=== PATIENT | female | born 1950 | race Caucasian/White ===

== ENCOUNTER 2021-05-26 14:37 | Emergency (ER) | payer MEDICARE, SELFPAY ==
[2021-05-26 14:38] VITALS: BP 156/88; PULSE 90; RESP 18; TEMP 36.6; O2SAT 97; BMI 29.2
[2021-05-26 14:48] VITALS: BP 158/80; PULSE 89; RESP 21; O2SAT 98
--- NOTE | 2021-05-26 14:59 | EKG12_ITS ---
Test Reason : CHEST PRESSURE Blood Pressure : / mmHG Vent. Rate : 086 BPM Atrial Rate : 086 BPM P-R Int : 162 ms QRS Dur : 096 ms QT Int : 370 ms P-R-T Axes : 049 -07 071 degrees QTc Int : 442 ms Normal sinus rhythm Septal infarct , age undetermined Abnormal ECG Confirmed by BINTA CRAIG, ADITYA ([id number]), editor index MEJIA DORMAN ([id number]) on 05/28/2021 9:26:28 AM Referred By: RU Confirmed By:ADITYA JUDD MD
--- NOTE | 2021-05-26 15:02 | RAD_ITS ---
HISTORY: chest pain EXAMINATION/TECHNIQUE: XR Chest 1 View: 1 view COMPARISON: None FINDINGS: LINES/DEVICES: None. LUNGS: No consolidation, edema or effusion. No pneumothorax. MEDIASTINUM AND CARDIOVASCULAR STRUCTURES: Cardiac silhouette not enlarged. Central airways and mediastinal contour are unremarkable. BONES AND SOFT TISSUES: No acute bony abnormalities. RAD/Chest 1 View (Portable) IMPRESSION: No radiographic evidence of acute cardiopulmonary disease. at 1557 Reported and signed by: Ramirez Freedman MD Electronically Signed: Ramirez Freedman MD at 15:56 EDT ,
[2021-05-26 15:11] LABS: Absolute Neutrophil Count 4.7 X10^3/uL (2.0-7.7); Basophil% 0.9 % (0-1); Eosinophil# 0.09 X10^3/uL; Eosinophils% 0.8 % (0-5); Hematocrit 49.5 % (37-47); Hemoglobin 17.2 g/dL (12.0-15.0); Lymphocyte % 45.3 % (19-41); Mean Corp Hgb Conc 34.7 g/dL (32-36); Mean Corpuscular Hgb 30.6 pg (27.0-32.0); Mean Corpuscular Volume 87.9 fL (81-99); Mean Platelet Vol. 10.4 fl (6.2-12.0); Monocyte# 0.86 X10^3/uL; Monocyte% 8.1 % (0-10); NRBC Flagged by Analyzer 0 % (0-5); Neutrophil # 4.74 X10^3/uL (2.7-7.7); Neutrophil % 44.8 % (47-70); Platelet Count 267 K/mm3 (150-450); RBC Distribution Width CV 12.6 % (11.6-14.6); Red Blood Count 5.63 M/mm3 (4.2-5.4); White Blood Count 10.6 K/mm3 (4.4-11.0)
--- NOTE | 2021-05-26 15:14 | ED.VIS.CHEST ---
HPI History of Present Illness Chief Complaint: Chest Pain Informant: patient Onset/Context/Timing Onset: Hours (7) Activity at onset: gradual and onset Timing: Continuous Quality: Positive for Pain Location: Substernal (No radiation) Current Severity: Mild Maximum Severity: Moderate Worsened By: Exertion, Movement of Torso (Bending over), Breathing and - (No different with eating breakfast this morning after the discomfort had started) Relieved By: Rest Associated Symptoms: Positive for Dyspnea and Lightheadedness; Negative for Nausea, Vomiting, Diaphoresis, Cough, Fever and Palpitations Narrative Narrative: Patient with chest discomfort that started this morning after she was up and moving around while she was getting dressed. She notes that bending over made it worse, exerting herself made it worse, rest made it better, it has not gone away. EMS was called, they gave her aspirin. She states there is a pleuritic component to it. She has no reason to have muscle pain in her chest with overuse or injury recently. No recent travel, immobilization, hospitalization, or surgery. No history of blood clots. No recent illness or cough. CVD Risk Factors: Positive for Diabetes; Negative for Hypertension, Hypercholesterolemia, Family History 1' </=55 and Smoking PE Risk Factors: Negative for Recent Travel/Surgery, Recent Immobilization, Prior DVT or PE, Cancer and OCP + Smoking + >/=35 PFSH PFSH Medical History Diabetes Macular degeneration Meniere's disease Osteopenia Home Medications alendronate 35 mg PO DAILY 05/26/21 [History Last Taken Unknown] amlodipine 2.5 mg PO DAILY 05/26/21 [History Last Taken Unknown] hydrochlorothiazide 25 mg PO DAILY 05/26/21 [History Last Taken Unknown] metformin 1,000 mg PO DAILY 05/26/21 [History Last Taken Unknown] simvastatin 40 mg PO DAILY 05/26/21 [History Last Taken Unknown] Allergy/AdvReac Type Severity Reaction Status Date / Time lisinopril Allergy Laryngospas Verified 05/26/21 14:41 ms Surgical History (Updated 05/26/21 @ 14:53 by Vijaya Beltran) Hx of cholecystectomy Social History Smoking Status: Never smoker ROS ROS ED Constitutional Constitutional ED: Denies chills or fever(s) Eyes Eyes: Denies change in vision or diplopia ENT ENT ED: Denies rhinorrhea or sore throat Cardiovascular Cardiovascular: Reports chest pain; Denies orthopnea, palpitations or pedal edema Respiratory/Chest Respiratory/Chest: Reports dyspnea; Denies cough or orthopnea Gastrointestinal Gastrointestinal: Denies abdominal pain, diarrhea, nausea or vomiting Genitourinary Genitourinary ED: Denies dysuria or hematuria Musculoskeletal Musculoskeletal: Denies back pain or neck pain Integumentary Denies abscess or rash Neurologic Neurologic: Denies headache(s), paresthesias or weakness Psychiatric Psychiatric: Denies anxiety or suicidal thoughts EXAM Physical Exam Const Vital Signs: 05/26/21 14:38 05/26/21 14:48 05/26/21 15:00 Temperature 97.9 F Temperature Source Temporal Pulse Rate 90 89 Respiratory Rate 18 21 H Blood Pressure 156/88 H 158/80 H Blood Pressure Mean 110 106 Pulse Ox 97 98 Oxygen Delivery Method Room Air Room Air Room Air 05/26/21 15:41 05/26/21 15:53 Temperature Temperature Source Pulse Rate 78 84 Respiratory Rate Blood Pressure 124/79 H 105/81 H Blood Pressure Mean Pulse Ox Oxygen Delivery Method Positive well nourished and well developed General Appearance ED: well developed and NAD HEENT Reports moist mucous membranes normocephalic and atraumatic Eyes PERRL and EOMs intact bilaterally Neck full ROM and supple Chest Wall Chest: Negative for tenderness Resp normal respiratory effort and clear to auscultation bilaterally Cardio regular rate, regular rhythm, no murmurs and no JVD Rate: Negative for bradycardia or tachycardic GI non-tender and non-distended Auscultation: normoactive bowel sounds Palpation: soft Back/Spine no CVA tenderness General Back: other FROM Extremity normal to inspection General Extremety ED: Negative for edema, pulses abnormal or tenderness General Extremity: Negative for edema or pulses abnormal Neuro oriented x3, CN's II-XII intact bilaterally and no sensory deficits noted Sensorium / Orientation: awake and alert Motor Exam: strength 5/5 throughout Skin no rashes or lesions noted and no wounds Heart Score History: Moderately Suspicious ECG: Normal Age: >/= 65 years Risk Factors: >/= 3 Risk Factors or History of CAD Troponin: </= Normal Limit Score: 5 MDM MDM MDM Narrative Medical decision making narrative: Work-up noted. On my interpretation 1 view chest x-ray negative for anything acute, radiology in agreement. She was offered nitroglycerin for the discomfort it was a lot better barely there on reevaluation. Troponin is 6 after 6 or 7 hours of constant discomfort, making acute coronary syndrome much less likely, however given her heart score and risk, and the fact that her discomfort is not completely gone, I discussed admitting her for observation and a stress test tomorrow morning. She understands that going home she has a slight increased risk from someone who would have less risk of having an GA or , and she accepts this risk and prefers to go home and follow-up closely with her PCP. We discussed reasons to return, and discussed the plan together. Lab Data Attestation: I reviewed the patient's lab results. Labs: Laboratory Results - last 24 hr 05/26/21 05/26/21 05/26/21 14:45 14:45 14:45 WBC 10.6 RBC 5.63 H Hgb 17.2 H Hct 49.5 H MCV 87.9 MCH 30.6 MCHC 34.7 RDW Std Deviation 41.0 RDW Coeff of Rossi 12.6 Plt Count 267 MPV 10.4 Immature Gran % (Auto) 0.100 Neut % (Auto) 44.8 L Lymph % (Auto) 45.3 H [place] % (Auto) 8.1 Eos % (Auto) 0.8 Baso % (Auto) 0.9 Absolute Neuts (auto) 4.7 Absolute Lymphs (auto) 4.80 H Nucleated RBC % 0 D-Dimer Quant (PE/DVT) 0.40 Sodium 139 Potassium 3.5 Chloride 104 Carbon Dioxide 28.0 Anion Gap 7 BUN 13 Creatinine 0.75 Estim Creat Clear Calc 42.68 Est GFR (MDRD) Af Amer 98 Est GFR (MDRD) Non-Af 81 BUN/Creatinine Ratio 17.3 Glucose 107 H Calcium 10.4 H Troponin I High Sens 6 Radiography Diagnostic Testing: Clinical Impression(s) from Imaging Studies Chest X-Ray 05/26/21 15:02 IMPRESSION: No radiographic evidence of acute cardiopulmonary disease. at 1557 Reported and signed by: Ramirez Freedman MD Electronically Signed: Ramirez Freedman MD at 15:56 EDT Reading Location ID and State: [facility] / [place] Tel , Service support , EKG Initial EKG: Attestation: I personally reviewed and interpreted this EKG as follows: Interpretation: Sinus Rhythm, No Acute Injury Pattern and - (Anteroseptal Q waves) Prior: No Prior Discharge Plan Triage Chief Complaint: Chest Pain ED Provider: Aayush Tomas Dx/Rx/DC Orders Clinical Impression: Chest pain, unspecified Instructions: ED Chest Pain, Uncertain Cause Prescriptions: No Action amlodipine 2.5 mg tablet 2.5 mg PO DAILY RF: 0 simvastatin 40 mg tablet 40 mg PO DAILY RF: 0 alendronate 35 mg tablet 35 mg PO DAILY RF: 0 hydrochlorothiazide 25 mg tablet 25 mg PO DAILY RF: 0 metformin 500 mg tablet extended release 24 hr 1,000 mg PO DAILY RF: 0 Primary Care Provider: Eladio Kennedy Referrals: Eladio Kennedy DO [Primary Care Provider] - As soon as possible Activity Restrictions/Additional Instructions: Take aspirin 81 mg daily at least until you are seen in follow-up. Disposition Disposition: Home, Self Care
[2021-05-26 15:28] LABS: Anion Gap 7 (5-15); BUN 13 mg/dL (7-18); BUN/Creat Ratio 17.3 RATIO (10-20); Calcium,Total 10.4 mg/dL (8.5-10.1); Chloride 104 mmol/L (98-107); Creatinine, Serum 0.75 mg/dL (0.55-1.02); EST Glomerular Filtration Rate 81 mL/min (>60); Est Glom Filt Rate - Afr Amer 98 mL/min (>60); Estimated Creatinine Clearance 42.68 ml/min; Glucose 107 mg/dL (74-106); Potassium 3.5 mmol/L (3.5-5.1); Sodium Level 139 mmol/L (136-145); Troponin-I HS 6 pg/mL (3.0-54.0)
[2021-05-26 15:41] VITALS: BP 124/79; PULSE 78
[2021-05-26] MEDS: Nitroglycerin SL (ED/IMG/CATH) 0.4 MG TABLET SL ×2 (15:41→15:53)
[2021-05-26 15:53] VITALS: BP 105/81; PULSE 84
[2021-05-26 17:29] VITALS: BP 108/79; PULSE 71; RESP 16; O2SAT 97
== END 2021-05-26 17:30 | disposition home or self-care (01) ==
PROVIDERS: Emergency Provider Emergency Medicine; PCP Preventive Medicine Occupational Medicine; Visit Provider Emergency Medicine
DX: R07.89 Other chest pain (principal); E11.9 Type 2 diabetes mellitus without complications; R06.00 Dyspnea, unspecified; M85.80 Other specified disorders of bone density and structure, unspecified site; H81.09 Meniere's disease, unspecified ear; Z79.899 Other long term (current) drug therapy; Z79.84 Long term (current) use of oral hypoglycemic drugs
CPT/HCPCS: 71045; 80048; 84484; 85025; 85379; 93005; 99285

== ENCOUNTER → 2023-03-18 | Outpatient (CLI) | payer MEDICARE, SELFPAY ==
--- NOTE | 2023-03-18 11:45 | RAD_ITS ---
EXAM: XR CHEST, 2 VIEWS CLINICAL INDICATION: cad TECHNIQUE: Frontal and lateral views of the chest. COMPARISON: 05/26/2021 FINDINGS: LUNGS AND PLEURAL SPACES: Unremarkable. No consolidation or edema. No pneumothorax. No effusion. HEART: Unremarkable. Cardiac silhouette not enlarged. MEDIASTINUM: Central airways and mediastinal contour are unremarkable. BONES/JOINTS: Unremarkable. No acute fracture. SOFT TISSUES: Unremarkable. RAD/Chest PA and Lateral IMPRESSION: No radiographic evidence of acute cardiopulmonary disease. Electronically Signed: Bishop Glez MD at 23:28 EST ,
[2023-03-18 12:31] LABS: Absolute Lymphocyte Count 3.07 X10^3/uL (0.83-4.51); Absolute Neutrophil Count 4.7 X10^3/uL (2.0-7.7); Basophil# 0.12 X10^3/uL; Basophil% 1.4 % (0-1); Eosinophil# 0.08 X10^3/uL; Eosinophils% 0.9 % (0-5); Hematocrit 50.1 % (37-47); Hemoglobin 16.8 g/dL (12.0-15.0); Lymphocyte # 3.07 X10^3/ul (0.83-4.51); Lymphocyte % 34.9 % (19-41); Mean Corp Hgb Conc 33.5 g/dL (32-36); Mean Corpuscular Hgb 29.7 pg (27.0-32.0); Mean Corpuscular Volume 88.7 fL (81-99); Mean Platelet Vol. 10.5 fl (6.2-12.0); Monocyte# 0.84 X10^3/uL; Monocyte% 9.5 % (0-10); NRBC Flagged by Analyzer 0 % (0-5); Neutrophil # 4.68 X10^3/uL (2.7-7.7); Neutrophil % 53.2 % (47-70); Platelet Count 246 K/mm3 (150-450); RBC Distribution Width CV 12.6 % (11.6-14.6); RBC Distribution Width SD 41.1 fl (35.1-43.9); Red Blood Count 5.65 M/mm3 (4.2-5.4); White Blood Count 8.8 K/mm3 (4.4-11.0)
[2023-03-18 13:22] LABS: Anion Gap 8 (5-15); BUN 17 mg/dL (7-18); BUN/Creat Ratio 21.2 RATIO (10-20); Chloride 105 mmol/L (98-107); EST Glomerular Filtration Rate 75 mL/min (>60); Est Glom Filt Rate - Afr Amer 90 mL/min (>60); Glucose 210 mg/dL (74-106); Potassium 3.5 mmol/L (3.5-5.1); Sodium Level 137 mmol/L (136-145); Thyroid Stim Hormone (TSH) 2.28 uIU/mL (0.358-3.74)
== END | disposition home or self-care (01) ==
LOC: LAB 11:26
PROVIDERS: PCP Preventive Medicine Occupational Medicine; Referring Provider Internal Medicine Cardiovascular Disease; Visit Provider Internal Medicine Cardiovascular Disease
DX: R07.9 Chest pain, unspecified (principal); E11.9 Type 2 diabetes mellitus without complications; H81.09 Meniere's disease, unspecified ear
CPT/HCPCS: 36415; 71046; 80048; 84443; 85025

== ENCOUNTER 2023-04-06 08:15 | Day surgery (SDC) | payer MEDICARE, SELFPAY ==
[2023-04-03 07:50] VITALS: BMI 31.8
--- NOTE | 2023-04-06 11:17 | CL.D_ITS ---
Patient Name: GIANFRANCO SO Study Date: 04/06/2023 Performing: Hernesto Chan MD Ht: 63 inches 160.02 cm : 1950 Wt: 180.01 lbs 81.65 kg Age: 72 Gender: female BSA: 1.85 PROCEDURE(S) PERFORMED [id number])LHC/COR/LV CLINICAL PROFILE AND INDICATIONS Indications: Suspected CAD Heart Failure: None Stress/Imaging Stress/Image Study Performed: No CAD Presentations: Stable angina. CONCLUSIONS Non obstructive coronary arteries RECOMMENDATIONS Medical therapy DESCRIPTION OF PROCEDURE The patient arrived to the procedure lab. The risks and benefits of the procedure as well as a full description of our services here and current unavailability of surgical backup were fully explained to the patient and/or their significant other prior to the catheterization. The Timeout was completed, verifying the correct patient and procedure. The patient's procedural site was prepped and draped in the usual fashion. Local anesthetic was given subcutaneously to right radial region with Lidocaine 2%. Using a modified Seldinger technique, arterial access was obtained via the right radial artery, a 6Fr sheath was inserted. Left Coronary Artery selective angiography was performed in multiple views using a 5 Fr. 4.0 [place] catheter. Right Coronary Artery selective angiography was then performed in multiple views using a 5 Fr. 4.0 [place] catheter. Left Ventriculography was performed in SCOTT projection using a 5 Fr. Pigtail catheter. LV to AO pullback pressures were then recorded.The arterial sheath was pulled and a TR Band was applied for hemostasis-8 cc air CORONARY ANGIOGRAPHY DOMINANCE: Right Dominant LEFT HEART ASSESSMENT Left Ventricular Ejection Fraction: by LV Gram 65 % Normal LV wall motion Normal Left Ventricular systolic function LEFT MAIN: Mild calcification, Mild luminal irregularities LEFT ANTERIOR DESCENDING ARTERY: Mild luminal irregularities less than 30% CIRCUMFLEX ARTERY: Mild luminal irregularities RIGHT CORONARY ARTERY: Mild luminal irregularities less than 30% COMPLICATIONS No Complications PROCEDURE MEDICATIONS Versed 1 mg IV Fentanyl 50 mcg IV Oxygen: 2 L/min via nasal cannula Baby Aspirin (81mg) 1 Tabs PO @ 04/06/2023 08:34:25 Heparin given IA 04/06/2023 10:55:48 Verapamil 2.5mg, Ntg 100mcgs, 3000 units of Heparin given IA 04/06/2023 10:55:48 SUMMARY OF HEMODYNAMIC DATA Time AIR REST ECG 08:32:36 Art 137/61 (90) 10:41:56 AO 139/0 (99) SA 10:56:53 LV 128/7, 16 11:01:16 LV 129/7, 13 11:01:24 LV 146/10, 17 11:01:58 LVp 137/13, 24 11:02:02 AOp 137/65 (97) 11:02:09 AIR REST 11:14:06 Signed By Hernesto Chan MD On 04/06/2023 11:16:30 Hernesto Chan MD
== END 2023-04-06 12:40 | disposition home or self-care (01) ==
PROVIDERS: PCP Preventive Medicine Occupational Medicine; Referring Provider Internal Medicine Cardiovascular Disease; Visit Provider Internal Medicine Cardiovascular Disease
DX: R07.9 Chest pain, unspecified (principal); E11.9 Type 2 diabetes mellitus without complications; I10 Essential (primary) hypertension; E78.5 Hyperlipidemia, unspecified; Z90.49 Acquired absence of other specified parts of digestive tract; Z82.49 Family history of ischemic heart disease and other diseases of the circulatory system; H81.09 Meniere's disease, unspecified ear
CPT/HCPCS: 93458; 99152; 99153; J7040; Q9967; C1769; C1894

== ENCOUNTER 2024-05-27 12:32 | Day surgery (SDC) | payer MEDICARE, SELFPAY ==
--- NOTE | 2024-05-25 12:58 | PAT.ANESEVAL ---
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 When Was Last Pacemaker Check QUESTION #4 FULL TEXT: You/Your Family Experience fever (hyperthermia) with Anesthesia Last Oral Intake Last Oral intake: Last Oral Intake NPO since Meds taken in AM with sips of water? 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 fertility extension specialist Female Yes 05/25/24 11:09 HX of Motion Sickness No 05/25/24 11:09 HX of N/V After Surgery No 05/25/24 11:09 Non-Smoker Yes 05/25/24 11:09 Duration of Surgery greater No 05/25/24 11:09 than 60 minutes Number of Risk Factors 2 05/25/24 11:09 PONV Score Moderate Risk 05/25/24 11:09 Height & Weight Height & Weight: Anesthesia: Height & Weight Height 5 ft 3 in 10/26/23 14:47 Respiratory Assessment Respiratory Assessment - soil fertility extension specialist: Respiratory Tract Infection Hx - 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 Has anyone observed you stop No 05/25/24 11:09 breathing during sleep? STOP Results Negative 05/25/24 11:09 QUESTION #5 FULL TEXT : Do you snore loudly (louder than talking or can be heard through closed doors)? 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 Specify any problems Hx of Preganancy in last 3 N/A 05/25/24 11:09 Months Nurse Filling Out Transfusion NBUCHER 05/25/24 11:09 & Questions: Date: 05/25/24 05/25/24 11:09 Time: 11:11 05/25/24 11:09 Patient unable to answer at this time (ie. confused, unrespo /Reproduction History /Reproductive History - soil fertility extension specialist: /Reproductive Hx- soil fertility extension specialist Hx Now No 05/25/24 11:09 Gestational Age (in weeks): EDC: Hx Hx Para Hx Section SAB No 05/25/24 11:09 [facility] Medical History (Updated 05/25/24 @ 11:16 by Angela Solorzano) Wears glasses Loss of hearing Wears dentures Arthritis High cholesterol Non-smoker History of stress test Kidney stones Cardiology follow-up encounter Osteoarthritis GERD (gastroesophageal reflux disease) Hyperlipidemia Essential (primary) hypertension Diabetes Osteopenia Macular degeneration Meniere's disease Home Medications ?Medication ?Instructions ?Recorded ?Last Taken ?Type hydrochlorothiazide 25 mg tablet 25 mg PO DAILY 05/26/21 Unknown History metformin 500 mg tablet,extended 1,000 mg PO DAILY 05/26/21 04/05/23 History release 24 hr alendronate 35 mg tablet 35 mg PO QWEEK 02/16/23 Unknown History calcium 500 mg (as 1 tab PO DAILY 02/16/23 Unknown History carbonate)-vitamin D3 5 mcg (200 unit) tablet (Calcium 500 + D) meclizine 25 mg tablet 25 mg PO TID PRN motion sickness 02/16/23 Unknown History multivitamin 1 tab PO DAILY 02/16/23 Unknown History nitroglycerin 0.4 mg sublingual 0.4 mg sublingual Q5-15M PRN chest 02/16/23 Unknown History tablet (Nitrostat) pain vit C 250 mg-vit E 90 mg-zinc 40 1 tab PO BID 02/16/23 Unknown History mg-copper 1 [id number] capsule (PreserVision AREDS-2) simvastatin 40 mg tablet 40 mg PO DAILY 04/06/23 Unknown History metoprolol succinate 25 mg 25 mg PO DAILY #90 tabs 12/08/23 Unknown Rx tablet,extended release 24 hr (Toprol XL) amlodipine 10 mg tablet 5 mg PO DAILY 05/25/24 Unknown History Allergy/AdvReac Type Severity Reaction Status Date / Time lisinopril Allergy Laryngospas Verified 05/25/24 11:05 ms nitrofurantoin (From AdvReac Severe Nausea/Vom/ Verified 05/25/24 11:05 Macrobid) Diarrhea Family History Mother Cancer Heart disease Hyperlipidemia Hypertension Colon cancer CVA (cerebral vascular accident) Daughter Cancer Hypertension Sister Colon cancer Diabetes Myocardial infarction Heart disease Hyperlipidemia Hypertension Father Myocardial infarction Heart disease Hyperlipidemia Hypertension Brother Heart disease Surgical History (Updated 05/25/24 @ 11:16 by Angela Solorzano) History of placement of ureteral stent History of cardiac catheterization Hx of total knee replacement Hx of cholecystectomy Social History Smoking Status: Never smoker alcohol intake: never substance use type: does not use Audit: Pertinent Findings Pertinent Findings EKG Perinent findings: 03/18/2023. Sinus tachycardia old anterior infarct nonspecific ST depression. Diffuse nonspecific T wave abnormality. LVH versus strain or digitalis effect. Heart catheterization pertinent findings: 04/06/2023. Indication suspected coronary artery disease. Conclusion nonobstructive coronary arteries. Medication therapy only. Consult pertinent findings: Cardiology. 10/26/2023. History of chest pain. Inactive. Had a heart cath in past. Hypertension. Controlled with current medications. No further care needed. Recommendation Anesthesia Recommendation Anesthesia recommendation: OPTIMIZED for anesthesia
[2024-05-27] VITALS (7 sets, daily range): BP systolic 112–164; BP diastolic 63–129; PULSE 72–92; RESP 16–20; TEMP 36.2–37.4; O2SAT 95–99; BMI 29.7
--- NOTE | 2024-05-27 13:00 | PRE.ANES_ITS ---
ASA Classification* ASA Classification ASA Classification: 2 Assessment & Plan Anesthesia* Anesthesia Assessment Anesthesia Assessment: Discussed sedation and/or anesthesia options, risks, benefits, and alternatives with patient/parents/legal guardian/POA. Questions invited. The patient/parents/legal guardian/POA seems to understand and agrees to proceed with anesthesia plan. Reviewed the physical assessment, medical history, allergy history and patient home medications list prior to surgery/procedure/anesthetic and documented any changes. Performed airway and anesthesia risk assessments. Anesthesia Type Anesthesia Type: General Anesthesia Focused Assessment* Airway Assessment Mouth opens: >3 cm Mallampati Score: II Focused Labs Anesthesia Preop lab: CBC WBC 8.8 K/mm3 (4.4-11.0) 03/18/23 11:03/18/23 RBC 5.65 M/mm3 (4.2-5.4) H 03/18/23 11:03/18/23 Hgb 16.8 g/dL (12.0-15.0) H 03/18/23 11: 4 Hct 50.1 % (37-47) H 03/18/23 11:03/18/23 Plt Count 246 K/mm3 (150-450) 03/18/23 11:03/18/23 CHEMISTRY Potassium 3.5 mmol/L (3.5-5.1) 03/18/23 11:32 03/18/23 Sodium 137 mmol/L (136-145) 03/18/23 11:03/18/23 BUN 17 mg/dL (7-18) 03/18/23 11:03/18/23 Creatinine 0.80 mg/dL (0.55-1.02) 03/18/23 11:03/18/23 Glucose 210 mg/dL (74-106) H 03/18/23 11:03/18/23 TSH 2.28 uIU/mL (0.358-3.74) 03/18/23 11: COAG Pre-Assessment Diagnosis/Proposed Procedure Planned Operative Procedure(s): ERCP WITH STENT REMOVAL Anesthesia History Anesthesia History - rn first assistant: Anesthesia History - rn first assistant Hx Hospitalization Yes: 05/20/24 INFECTION, 05/25/24 11:09 KIDNEY STONES Any Problems With Anesthesia No 05/25/24 11:09 Cholinesterase deficiency No 05/25/24 11:09 You/Your Family Experience No 05/25/24 11:09 fever (hyperthermia) with Relationship Recent Exposure to Contagious Disease Does patient have nerve No 05/25/24 11:09 stimulator Patient instructed to have device shut off --Does patient have Pacemaker or ICD? When Was Last Pacemaker Check QUESTION #4 FULL TEXT: You/Your Family Experience fever (hyperthermia) with Anesthesia Last Oral Intake Last Oral intake: Last Oral Intake NPO since Meds taken in AM with sips of water? Meds patient instructed to take am of surgery PONV PONV - rn first assistant: PONV - rn first assistant Female Yes 05/25/24 11:09 HX of Motion Sickness No 05/25/24 11:09 HX of N/V After Surgery No 05/25/24 11:09 Non-Smoker Yes 05/25/24 11:09 Duration of Surgery greater No 05/25/24 11:09 than 60 minutes Number of Risk Factors 2 05/25/24 11:09 PONV Score Moderate Risk 05/25/24 11:09 Height & Weight Height & Weight: Anesthesia: Height & Weight Height 5 ft 3 in 10/26/23 14:47 Respiratory Assessment Respiratory Assessment - rn first assistant: Respiratory Tract Infection Hx - rn first assistant Hx Respiratory Tract Infection No 05/25/24 11:09 STOP Sleep Apnea STOP Sleep Apnea - rn first assistant: STOP Sleep Apnea - rn first assistant Hx Hypertension Yes: CONTROLLED WITH MED 05/25/24 11:09 Hx Sleep Apnea No 05/25/24 11:09 CPAP BIPAP Do you snore loudly (louder No 05/25/24 11:09 than talking or can be heard Do you often feel tired/ No 05/25/24 11:09 fatigued/ sleepy during daytime? Has anyone observed you stop No 05/25/24 11:09 breathing during sleep? STOP Results Negative 05/25/24 11:09 QUESTION #5 FULL TEXT : Do you snore loudly (louder than talking or can be heard through closed doors)? 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 Specify any problems Hx of Preganancy in last 3 N/A 05/25/24 11:09 Months Nurse Filling Out Transfusion NBUCHER 05/25/24 11:09 & Questions: Date: 05/25/24 05/25/24 11:09 Time: 11:11 05/25/24 11:09 Patient unable to answer at this time (ie. confused, unrespo /Reproduction History /Reproductive History - rn first assistant: /Reproductive Hx- rn first assistant Hx Now No 05/25/24 11:09 Gestational Age (in weeks): EDC: Hx Hx Para Hx Section SAB No 05/25/24 11:09 Active Medications Active Medications: Current Medications Generic Name Dose Route Start Last Admin Trade Name Freq PRN Reason Stop Dose Admin Cefazolin Sodium 2 gm/ N/A 20 mls @ 400 mls/hr 05/27/24 14:45 IV 05/27/24 14:47 PREOP ONE [facility] Medical History Wears glasses Loss of hearing Wears dentures Arthritis High cholesterol Non-smoker History of stress test Kidney stones Cardiology follow-up encounter Osteoarthritis GERD (gastroesophageal reflux disease) Hyperlipidemia Essential (primary) hypertension Diabetes Osteopenia Macular degeneration Meniere's disease Home Medications ?Medication ?Instructions ?Recorded ?Last Taken ?Type hydrochlorothiazide 25 mg tablet 25 mg PO DAILY Unknown History metformin 500 mg tablet,extended 1,000 mg PO DAILY 04/05/23 History release 24 hr alendronate 35 mg tablet 35 mg PO QWEEK 02/16/23 Unkn own History calcium 500 mg (as 1 tab PO DAILY 02/16/23 Unkn own History carbonate)-vitamin D3 5 mcg (200 unit) tablet (Calcium 500 + D) meclizine 25 mg tablet 25 mg PO TID PRN motion sick ness 02/16/23 Unknown History multivitamin 1 tab PO DAILY 02/16/23 Unkn own History nitroglycerin 0.4 mg sublingual 0.4 mg sublingual Q5-1 5M PRN chest 02/16/23 Unknown History tablet (Nitrostat) pain vit C 250 mg-vit E 90 mg-zinc 40 1 tab PO BID 02/16/23 Unknown History mg-copper 1 [id number] capsule (PreserVision AREDS-2) simvastatin 40 mg tablet 40 mg PO DAILY 04/06/23 Unkn own History metoprolol succinate 25 mg 25 mg PO DAILY #90 tabs Unknown Rx tablet,extended release 24 hr (Toprol XL) amlodipine 10 mg tablet 5 mg PO DAILY 05/25/24 Unkno wn History Allergy/AdvReac Type Severity Reaction Status Date / Time lisinopril Allergy Laryngospas Verified 05/25/24 11:05 ms nitrofurantoin (From AdvReac Severe Nausea/Vom/ Verified 05/25/24 11:05 Macrobid) Diarrhea Family History Mother Cancer Heart disease Hyperlipidemia Hypertension Colon cancer CVA (cerebral vascular accident) Daughter Cancer Hypertension Sister Colon cancer Diabetes Myocardial infarction Heart disease Hyperlipidemia Hypertension Father Myocardial infarction Heart disease Hyperlipidemia Hypertension Brother Heart disease Surgical History History of placement of ureteral stent History of cardiac catheterization Hx of total knee replacement Hx of cholecystectomy Social History Smoking Status: Never smoker alcohol intake: never substance use type: does not use Review of Systems (Anesthesia) ROS Narrative System reviewed and no additional complaints, except as documented.
[2024-05-27 13:49] LABS: Bedside Glucose 127 mg/dL (74-106)
--- NOTE | 2024-05-27 14:03 | PCM.HP.STD ---
HPI - General General Date of Service: 05/27/24 Chief Complaint: Bilateral kidney stones HPI Narrative GIANFRANCO SO, is a 73 F who presents for treatment of right kidney stones with shockwave lithotripsy and left kidney stones with shockwave lithotripsy she had a stent put in the left side for obstructing stone FORMERLY [facility], [facility] Medical History Wears glasses Loss of hearing Wears dentures Arthritis High cholesterol Non-smoker History of stress test Kidney stones Cardiology follow-up encounter Osteoarthritis GERD (gastroesophageal reflux disease) Hyperlipidemia Essential (primary) hypertension Diabetes Osteopenia Macular degeneration Meniere's disease Home Medications ?Medication ?Instructions ?Recorded ?Last Taken ?Type hydrochlorothiazide 25 mg tablet 25 mg PO DAILY 05/26/21 Unknown History metformin 500 mg tablet,extended 1,000 mg PO DAILY 05/26/21 04/05/23 History release 24 hr alendronate 35 mg tablet 35 mg PO QWEEK 02/16/23 Unknown History calcium 500 mg (as 1 tab PO DAILY 02/16/23 Unknown History carbonate)-vitamin D3 5 mcg (200 unit) tablet (Calcium 500 + D) meclizine 25 mg tablet 25 mg PO TID PRN motion sickness 02/16/23 Unknown History multivitamin 1 tab PO DAILY 02/16/23 Unknown History nitroglycerin 0.4 mg sublingual 0.4 mg sublingual Q5-15M PRN chest 02/16/23 Unknown History tablet (Nitrostat) pain vit C 250 mg-vit E 90 mg-zinc 40 1 tab PO BID 02/16/23 Unknown History mg-copper 1 [id number] capsule (PreserVision AREDS-2) simvastatin 40 mg tablet 40 mg PO DAILY 04/06/23 Unknown History metoprolol succinate 25 mg 25 mg PO DAILY #90 tabs 12/08/23 05/27/24 Rx tablet,extended release 24 hr (Toprol XL) amlodipine 10 mg tablet 5 mg PO DAILY 05/25/24 05/27/24 History Allergy/AdvReac Type Severity Reaction Status Date / Time lisinopril Allergy Laryngospas Verified 05/27/24 13:15 ms nitrofurantoin (From AdvReac Severe Nausea/Vom/ Verified 05/27/24 13:15 Macrobid) Diarrhea Family History Mother Cancer Heart disease Hyperlipidemia Hypertension Colon cancer CVA (cerebral vascular accident) Daughter Cancer Hypertension Sister Colon cancer Diabetes Myocardial infarction Heart disease Hyperlipidemia Hypertension Father Myocardial infarction Heart disease Hyperlipidemia Hypertension Brother Heart disease Surgical History History of placement of ureteral stent History of cardiac catheterization Hx of total knee replacement Hx of cholecystectomy Social History Smoking Status: Never smoker alcohol intake: never substance use type: does not use Vital Signs Vital Signs Vital Signs: 05/27/24 13:16 05/27/24 13:16 Temperature 99.3 F H Temperature Source Temporal Pulse Rate 92 Respiratory Rate 16 Respiratory Pattern Normal Blood Pressure 112/85 H Blood Pressure Mean 94 Blood Pressure Source Monitor Blood Pressure Position Semi-Fowlers Blood Pressure Location Left Arm Pulse Ox 98 Oxygen Delivery Method Room Air Weight Weight: 76.3 kg Body Mass Index (BMI) 29.7 Results Lab / Micro Data Labs: Laboratory Results - last 24 hr 05/27/24 13:30: POC Glucose 127 H
--- NOTE | 2024-05-27 14:04 | DCINST_ITS ---
Discharge Instructions Diet Discharge Diet: No restrictions DC O2, CPAP, BIPAP needs Home O2 Discharge instructions: No Dressing / Incision Discharge Activity: Return to Normal Activity and May Not Drive (while taking narcotic pain medications.) Dressing / Incision Call your doctor if you observe: Fever of 101 or Higher Follow Up Care Please Follow Up With: Casey Walters MD When: Call [phone] for an appointment Test Results: Test results from this visit will be discussed in further detail at your follow- up appointment, if applicable. Discharge Plan Admission Primary Reason for Your Visit: eswl Attending Provider: Casey Walters Primary Care Provider: Eladio Kennedy Instructions Print Language: Panamanian Discharge Orders/Prescriptions Prescriptions: Continued calcium carbonate-vitamin D3 [Calcium 500 + D] 500 mg-5 mcg (200 unit) tablet 1 tab PO DAILY Patient Comments: 1 tablet by mouth as directed meclizine 25 mg tablet 25 mg PO TID PRN (Reason: motion sickness) multivitamin Tablet 1 tab PO DAILY PreserVision AREDS-2 250-90-40-1 mg capsule 1 tab PO BID Patient Comments: 1 capsule by mouth twice a day nitroglycerin [Nitrostat] 0.4 mg tablet, sublingual 0.4 mg sublingual Q5-15M PRN (Reason: chest pain) Rx Instructions: do not exceed 3 doses per episode hydrochlorothiazide 25 mg tablet 25 mg PO DAILY Patient Comments: TAKE 1 TABLET BY MOUTH EVERY DAY metformin 500 mg tablet extended release 24 hr 1,000 mg PO DAILY Patient Comments: TAKE 2 TABLETS BY MOUTH EVERY DAY alendronate 35 mg tablet 35 mg PO QWEEK Patient Comments: PLEASE SEE ATTACHED FOR DETAILED DIRECTIONS simvastatin 40 mg tablet 40 mg PO DAILY Patient Comments: TAKE 1 TABLET BY MOUTH AT BEDTIME amlodipine 10 mg tablet 5 mg PO DAILY metoprolol succinate [Toprol XL] 25 mg tablet extended release 24 hr 25 mg PO DAILY Qty: 90 3RF Referrals / Follow Up: Casey Walters MD [Med Staff - Active Staff] - Eldaio Kennedy DO [Primary Care Provider] - Disposition Disposition (needs filled in before D/C Order can be placed): Home, Self Care
[2024-05-27] MEDS: Cefazolin 2 GM in Syringe IV (14:50)
--- NOTE | 2024-05-27 14:55 | PCM.OPRPT ---
Operative Report (Standard) Operative Information Date of Procedure: 05/27/24 Pre-Operative Diagnosis: Right kidney stones, left kidney stones Post-Operative Diagnosis: The same Surgery/Procedure Performed: Right extracorporeal shockwave lithotripsy, left extracorporeal shockwave lithotripsy servicenow administrator developer: No Type of Anesthesia: General RN Documented Start/Stop Times: Operation Date: 05/27/24 14:45 Case Time Into Pre-Op 05/27/24 13:00 Anesthesia Start 05/27/24 14:44 Into Room 05/27/24 14:44 Procedure Start 05/27/24 14:53 Procedure Start Time: 14:53 Procedure Stop Time: 15:49 Select all DRAINS/GRAFTS/IMPLANTS that apply: Drains Drain details: left stent in place Estimated Blood Loss: 0 Specimen collected: No Description of surgery: Patient presents to the hospital for treatment of a kidney stone with shockwave lithotripsy. In the preoperative area and x-ray was done to confirm the location of the stone. The x-ray was reviewed and the stone location was reviewed. In the preoperative setting I spoke with the patient regarding the treatment of the stone how the treatment would be conducted and the expectations after surgery. The patient understands there is a risk of bleeding and infection. Also discussed the very rare risk of hematoma or damage to the kidney. We also discussed the risk that the shockwave machine will fail to break the stone adequately and that the patient may need other surgical procedures. I also discussed the possibility that the patient may need a stent after the procedure. After reviewing the procedure with the patient, the patient is signed the consent form all the patient's questions were addressed and was taken back to the operating room for treatment of a kidney stone. Patient was taken back to the operating room, the patient was identified by the nursing staff, I identified the side of the treatment and the patient side of treatment had been marked by my initials. The patient underwent general anesthetic and was placed supine on the lithotripter table. I then used fluoroscopy to identify the stones in the lower pole of the right kidney. I then positioned the patient under the lithotripter and I used triangulation technique to identify the location of the stone and then I made sure that the stone was engaged in the F2 focal point of F2 Donier lithoprior machine. Once the patient was positioned appropriately and the stone was identified and placed in the F2 focal point of the lithotripter machine I then proceeded with shockwave lithotripsy. In the beginning the shockwave was delivered at a rate of 90 shocks per minute, anesthesia monitored the EKG for any ectopy. The power was slowly increased to 5 kV and subsequently at the 7 kV. I then proceeded with the treatment with shock wave therapy and around during the treatment to make sure the stone stayed in the F2 focal point during the entire treatment and after 3000 shortwaves were delivered to the stone under fluoroscopic guidance the treatment was completed. I then reposition patient to treat the left kidney stone, fluoroscopy was used to identify the stone in the proximal left ureter next to the propositioned stent. I then positioned the patient under the lithotripter and I used triangulation technique to identify the location of the stone and then I made sure that the stone was engaged in the F2 focal point of F2 Donier lithoprior machine. Once the patient was positioned appropriately and the stone was identified and placed in the F2 focal point of the lithotripter machine I then proceeded with shockwave lithotripsy. In the beginning the shockwave was delivered at a rate of 90 shocks per minute, anesthesia monitored the EKG for any ectopy. The power was slowly increased to 5 kV and subsequently at the 7 kV. I then proceeded with the treatment with shock wave therapy and around during the treatment to make sure the stone stayed in the F2 focal point during the entire treatment and after 3000 shortwaves were delivered to the stone under fluoroscopic guidance the treatment was completed. The patient was given instructions to call the office to make an a follow-up appointment with an xray to evaluate the success of the treatment, patient understands that its possible the stones may need another procedure.At this point the patient's anesthetic was reversed patient was extubated and taken back to the PACU in stable condition. Surgical Findings: stone in the lower pole of right kidney and left proximal ureter by stent Complications Complications: No Admit VTE Documentation VTE Present on Admission: No VTE Mechan Device Prophylaxis: SCD's VTE Pharm Prophylaxis ordered?: No
--- NOTE | 2024-05-27 16:03 | PCM.POST.ANE ---
Anesthesia: Postop Eval I Current Vital Signs Temperature: 97.1 F Pulse Rate: 87 Blood Pressure: 164/129 Respiratory Rate: 20 Pulse Ox: 95 Assessment Airway patent: Yes Spontaneous unlabored respirations: Yes nausea: No Vomiting: No Anesthesia Complication: No Fluid Hydration Crystalloid volume administer (ml): 1,200 Total IV fluid infused: 1,200 Progress Note Anesthesia document: Postop Eval 1 completed: Yes
[2024-05-27] MEDS: Ketorolac 15 MG/ML Vial IV (16:45)
--- NOTE | 2024-05-27 17:02 | POSTOPAN2_ITS ---
Anesthesia Postop Eval I Sum Postop Eval Completion status Anesthesia document: Postop Eval 1 completed: Yes Anesthesia Postop Eval I Summary Anesthesia Postop Eval I Summary: Anesthesia Postop Eval I: Assessment Summary Airway patent Yes 05/27/24 16:03 MANAGER ENVIRONMENTAL HEALTH.[email or web address] Spontaneous unlabored Yes 05/27/24 16:03 MANAGER ENVIRONMENTAL HEALTH.CSIR respirations Mental status nausea No 05/27/24 16:03 MANAGER ENVIRONMENTAL HEALTH.CSIR Vomiting No 05/27/24 16:03 MANAGER ENVIRONMENTAL HEALTH.CSIR Anesthesia Postop Eval I: Fluid Summary Crystalloid volume administer 1,200 05/27/24 16:03 MANAGER ENVIRONMENTAL HEALTH.CSIR (ml) Colloids volume administered ( ml) Blood Product volume administered (ml) Total IV fluid infused 1,200 05/27/24 16:03 MANAGER ENVIRONMENTAL HEALTH.CSIR Anesthesia Postop Eval I: Summary Notes Anesthesia Complication No 05/27/24 16:03 MANAGER ENVIRONMENTAL HEALTH.CSIR Anesthesia Complication Comment: Post-operative progress note Anesthesia: Postop Eval II Evaluation Mental status: Awake Pain Level: 0 nausea: No Vomiting: No
--- NOTE | 2024-05-27 17:02 | PCM.POSTANE2 ---
Anesthesia Postop Eval I Sum Postop Eval Completion status Anesthesia document: Postop Eval 1 completed: Yes Anesthesia Postop Eval I Summary Anesthesia Postop Eval I Summary: Anesthesia Postop Eval I: Assessment Summary Airway patent Yes 05/27/24 16:03 PYROMETER MECHANIC.[email or web address] Spontaneous unlabored Yes 05/27/24 16:03 PYROMETER MECHANIC.CSIR respirations Mental status nausea No 05/27/24 16:03 PYROMETER MECHANIC.CSIR Vomiting No 05/27/24 16:03 PYROMETER MECHANIC.CSIR Anesthesia Postop Eval I: Fluid Summary Crystalloid volume administer 1,200 05/27/24 16:03 PYROMETER MECHANIC.CSIR (ml) Colloids volume administered ( ml) Blood Product volume administered (ml) Total IV fluid infused 1,200 05/27/24 16:03 PYROMETER MECHANIC.CSIR Anesthesia Postop Eval I: Summary Notes Anesthesia Complication No 05/27/24 16:03 PYROMETER MECHANIC.CSIR Anesthesia Complication Comment: Post-operative progress note Anesthesia: Postop Eval II Evaluation Mental status: Awake Pain Level: 0 nausea: No Vomiting: No
== END 2024-05-27 17:47 | disposition home or self-care (01) ==
LOC: SDC 12:37 → AC 12:41
PROVIDERS: PCP Preventive Medicine Occupational Medicine; Referring Provider Urology; Visit Provider Urology
PROC: (CPT 50590; principal; 2024-05-27 14:35)
DX: N20.2 Calculus of kidney with calculus of ureter (principal); E11.9 Type 2 diabetes mellitus without complications; I10 Essential (primary) hypertension; E78.00 Pure hypercholesterolemia, unspecified; Z79.83 Long term (current) use of bisphosphonates; Z79.84 Long term (current) use of oral hypoglycemic drugs; Z79.899 Other long term (current) drug therapy
CPT/HCPCS: 50590; 00873; 82962; J2405

== ENCOUNTER → 2024-09-01 | Outpatient (CLI) | payer MEDICARE, SELFPAY ==
--- NOTE | 2024-09-01 11:06 | RAD_ITS ---
PROCEDURE: ABDOMEN SINGLE VIEW 09/01/2024 REASON FOR EXAM: CALCULUS OF KIDNEY TECHNIQUE: ABDOMEN SINGLE VIEW COMPARISON: None. FINDINGS: The gastric shadow overlaps the left kidney limiting the evaluation. Metallic clips in the right upper quadrant, probably prior cholecystectomy. Normal visualized lung bases. There is an unremarkable bowel gas pattern. There is no demonstrated free abdominal air. Normal visualized liver. Normal visualized spleen. Normal visualized kidneys. The soft tissue structures of the pelvis are unremarkable. Moderate diffuse spondylosis. RAD/Abdomen Single View IMPRESSION: Limited evaluation secondary to gastric shadow overlying the left kidney. No definite renal calcifications/calculi are noted. Findings can be further ev aluated by CT scan if clinically warranted. Reading Location: [facility]
== END | disposition home or self-care (01) ==
LOC: RAD 10:54
PROVIDERS: PCP Preventive Medicine Occupational Medicine; Referring Provider Urology; Visit Provider Urology
DX: N20.0 Calculus of kidney (principal)
CPT/HCPCS: 74018